=== PATIENT | female | born 1990 | race Hispanic/Latino ===

== ENCOUNTER 2021-01-28 10:13 | Outpatient (CLI) | payer OTHER ==
[2021-01-28 23:42] LABS: SARS-CoV-2 PCR by NAA Not Detected (NotDetected)
== END 2021-01-28 10:14 | disposition home or self-care (01) ==
LOC: CSHLAB 10:13
PROVIDERS: ATTEND Student in an Organized Health Care Education/Training Program
DX: Z01.812 Encounter for preprocedural laboratory examination (principal); Z20.822 Contact with and (suspected) exposure to COVID-19
CPT/HCPCS: U0003; U0005

== ENCOUNTER 2021-01-31 19:00 | Inpatient (IN) | payer MEDICAID, OTHER, SELFPAY ==
[2021-02-01] MEDS ORDERED: hydrALAZINE 20 MG/ML VIAL SLOW IVP PRN (00:24)
[2021-02-01] MEDS ORDERED: Promethazine HCl 25 MG/ML VIAL IM PRN (00:24)
[2021-02-01] MEDS ORDERED: Misoprostol 200 MCG TAB PR PRN (00:24)
[2021-02-01] MEDS ORDERED: Lidocaine 1% (PF) 30 ML VIAL SC PRN (00:24)
[2021-02-01] MEDS ORDERED: Acetaminophen 500 MG TAB PO PRN (00:24)
[2021-02-01] MEDS ORDERED: Ibuprofen 800 MG TAB PO PRN (00:24)
[2021-02-01] MEDS ORDERED: Ondansetron PF 4 MG/2 ML Vial IVP PRN (00:24)
[2021-02-01] MEDS ORDERED: Carboprost 250 MCG/ML AMP IM PRN (00:24)
[2021-02-01] MEDS ORDERED: Methylergonovine 0.2 MG/ML VIAL IM PRN (00:24)
[2021-02-01] MEDS ORDERED: NS w/ Oxytocin 30 units 500 ML IV SCH (00:30)
[2021-02-01] MEDS ORDERED: NS w/ Oxytocin 30 units 500 ML IVPB SCH (00:30)
[2021-02-01 02:02] VITALS: BMI 27.2
[2021-02-01] MEDS: Misoprostol 100 MCG TAB VAG SCH ×3 (02:30→09:24)
[2021-02-01 02:44] LABS: Hemoglobin 11.5 g/dL (12.0-15.5); Mean Corpuscular HGB CONC 32.4 g/dL (32.0-36.0); Mean Corpuscular Hemoglobin 28.6 pg (27.0-33.0); Mean Corpuscular Volume 88.3 fl (81.6-98.3); Mean Platelet Volume 12.8 fl (7.4-10.4); Platelet Count 182 10x3/uL (150-450); RBC Distribution Width 12.3 % (11.5-14.5); Red Blood Cell (RBC) Count 4.02 10x6/uL (3.90-5.03)
[2021-02-01 02:49] LABS: ALT (SGPT) 178 U/L (8-55); AST (SGOT) 69 U/L (5-34); Albumin 3.3 g/dL (3.5-5.0); Alkaline Phosphatase 213 U/L (40-110); Anion Gap 14 mmol/L (10-20); BUN (Urea Nitrogen) 8 mg/dL (7.0-18.7); Bilirubin, Total 0.4 mg/dL (0.2-1.2); Calc. Creatinine Clearance 169 mL/min (70-130); Calcium 8.7 mg/dL (7.8-10.44); Carbon Dioxide 20 mmol/L (22-29); Chloride 110 mmol/L (98-107); Globulin 2.6 g/dL (2.4-3.5); Glucose 106 mg/dL (70-105); Protein, Total 5.9 g/dL (6.0-8.3); Sodium 140 mmol/L (136-145)
[2021-02-01 03:04] LABS: Hep B Surf Ag Non-Reactive S/CO (NonReactive)
[2021-02-01 03:27] LABS: Syphilis Antibody Nonreactive (Nonreactive); Syphilis Antibody Index 0.05 S/CO (<1.00 Non-Reactive)
[2021-02-01 03:36] LABS: HBSAg Index 0.22 S/CO (0-0.99)
[2021-02-01 03:47] LABS: Creatinine, Urine Less than 20.00 mg/dL (47-110); Protein, Urine Random Quant Less than 10 mg/dL (1-14)
[2021-02-01] MEDS: Ursodiol 300 MG CAP PO SCH ×2 (09:00→16:35)
[2021-02-01] MEDS: Lactated Ringer's 1,000 ML IV SCH (15:03)
[2021-02-01] MEDS: Vancomycin HCl 1 GM in Sodium Chloride 0.9% 250 ML 250 ML IVPB SCH (15:20)
[2021-02-01] MEDS ORDERED: Butorphanol Tartrate 1 MG/ML VIAL SLOW IVP PRN ×2 (18:25→19:23)
[2021-02-02] MEDS: Vancomycin HCl 1 GM in Sodium Chloride 0.9% 250 ML 250 ML IVPB SCH (03:20)
[2021-02-02] MEDS: Lactated Ringer's 1,000 ML IV SCH ×2 (08:00→09:39)
[2021-02-02] MEDS ORDERED: Fentanyl 2 mcg/Bup 0.1% Cadd 100 ML ONE (08:03)
[2021-02-02] MEDS: Fentanyl 2 mcg/Bupivacaine 0.1% Cassette 100 ML EPIDURAL SCH ×2 (08:27→13:26)
[2021-02-02] MEDS ORDERED: Naloxone HCl 0.4 mg/ml Vial IVP PRN ×2 (08:44)
[2021-02-02] MEDS ORDERED: diphenhydrAMINE 50 MG/ML VIAL IVP PRN (08:44)
[2021-02-02] MEDS ORDERED: Ondansetron PF 4 MG/2 ML Vial IVP PRN ×2 (08:44→22:17)
[2021-02-02] MEDS ORDERED: ePHEDrine Sulfate 50 MG/10 ML VIAL SLOW IVP PRN (08:44)
[2021-02-02] MEDS ORDERED: Acetaminophen 325 MG TAB PO PRN (08:44)
[2021-02-02] MEDS ORDERED: Lactated Ringer's 500 ML IV PRN (08:44)
[2021-02-02] MEDS ORDERED: Hydrocerin (Eucerin) Cream 120 gm Jar TOP PRN (08:44)
[2021-02-02] MEDS ORDERED: Promethazine HCl 25 MG/ML VIAL IM PRN ×2 (08:44→22:17)
[2021-02-02] MEDS ORDERED: Communication Order-Pharmacy FS SCH (08:45)
[2021-02-02] MEDS ORDERED: hydrALAZINE 20 MG/ML VIAL ONE (09:25)
[2021-02-02] MEDS ORDERED: Magnesium Sulfate 20 gm/500 ml 20 GM/500 ML BAG ONE (09:25)
[2021-02-02] MEDS ORDERED: Calcium Carbonate 500 MG ChewTAB PO PRN ×2 (09:35→09:55)
[2021-02-02] MEDS ORDERED: hydrALAZINE 20 MG/ML VIAL SLOW IVP SCH (09:45)
[2021-02-02] MEDS ORDERED: hydrALAZINE 20 MG/ML VIAL SLOW IVP PRN ×2 (09:54→22:17)
[2021-02-02 10:43] LABS: Creatinine, Urine 49.56 mg/dL (47-110); Protein, Urine Random Quant Less than 10 mg/dL (1-14)
[2021-02-02] MEDS ORDERED: Lidocaine 1% (PF) 30 ML VIAL ONE (14:37)
[2021-02-02] MEDS ORDERED: Misoprostol 200 MCG TAB VAG PRN (22:17)
[2021-02-02] MEDS ORDERED: NS w/ Oxytocin 30 units 500 ML IV SCH (22:17)
[2021-02-02] MEDS ORDERED: diphenhydrAMINE 25 MG CAP PO PRN (22:17)
[2021-02-02] MEDS ORDERED: Bisacodyl 10 MG SUPP PR PRN (22:17)
[2021-02-02] MEDS ORDERED: Milk Of Magnesia 30 ML UDCUP PO PRN (22:17)
[2021-02-02] MEDS ORDERED: Boostrix 0.5 ML (Tdap) VIAL IM ONE (22:17)
[2021-02-02] MEDS ORDERED: Benzocaine-Menthol 82.5 ML CAN TOP PRN (22:17)
[2021-02-02] MEDS ORDERED: Lanolin Ointment 7 GM TUBE TOP PRN (22:17)
[2021-02-02] MEDS ORDERED: Preparation H Ointment 28 GM TUBE PR PRN (22:17)
[2021-02-02] MEDS: Ibuprofen 800 MG TAB PO SCH (22:37)
[2021-02-02] MEDS: Docusate Calcium (SURFAK) 240 MG CAP PO SCH (22:38)
[2021-02-03] MEDS: Ferrous Sulfate 325 MG TAB PO SCH ×3 (02:38→13:50)
[2021-02-03 05:19] LABS: Hemoglobin 11.7 g/dL (12.0-15.5)
[2021-02-03] MEDS: Ibuprofen 800 MG TAB PO SCH ×3 (05:31→21:57)
[2021-02-03] MEDS: Misoprostol 100 MCG TAB VAG SCH ×5 (06:06→12:59)
[2021-02-03] MEDS: Ursodiol 300 MG CAP PO SCH ×2 (06:09→12:59)
[2021-02-03] MEDS: Lactated Ringer's 1,000 ML IV SCH (06:09)
[2021-02-03] MEDS: Vancomycin HCl 1 GM in Sodium Chloride 0.9% 250 ML 250 ML IVPB SCH (06:10)
[2021-02-03] MEDS: Prenatal Vitamin 1 TAB PO SCH (12:54)
[2021-02-03] MEDS: Docusate Calcium (SURFAK) 240 MG CAP PO SCH ×2 (12:54→21:57)
[2021-02-04] MEDS: Ibuprofen 800 MG TAB PO SCH ×2 (06:32→13:51)
[2021-02-04] MEDS: Ferrous Sulfate 325 MG TAB PO SCH (06:59)
[2021-02-04 07:45] VITALS: BP 123/67; TEMP 98.2
[2021-02-04] MEDS: Docusate Calcium (SURFAK) 240 MG CAP PO SCH (08:07)
[2021-02-04] MEDS: Prenatal Vitamin 1 TAB PO SCH (08:07)
== END 2021-02-04 16:25 | disposition home or self-care (01) | DRG 805 ==
LOC: CSHLD 19:35 → CSHPED 02-02 21:56
PROVIDERS: ADMIT Family Medicine; ATTEND Family Medicine
PROC: 10E0XZZ Delivery of Products of Conception, External Approach (ICD-10-PCS; principal; 2021-02-02)
DX: O26.62 Liver and biliary tract disorders in childbirth (principal); K83.1 Obstruction of bile duct; Z37.0 Single live birth; O98.82 Other maternal infectious and parasitic diseases complicating childbirth; B95.1 Streptococcus, group B, as the cause of diseases classified elsewhere; O13.4 Gestational [pregnancy-induced] hypertension without significant proteinuria, complicating childbirth; O99.62 Diseases of the digestive system complicating childbirth; K21.9 Gastro-esophageal reflux disease without esophagitis; O24.425 Gestational diabetes mellitus in childbirth, controlled by oral hypoglycemic drugs; Z3A.37 37 weeks gestation of pregnancy
CPT/HCPCS: 36415; 36416; 51702; 80053; 82570; 84156; 85014; 85018; 85027; 86780; 86850; 86900; 86901; 87340; 99285; J0360; J0595; J2590; J3370; J7030; J7050; J7120